=== PATIENT | female | born 2000 | race Caucasian/White ===

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

== ENCOUNTER 2024-04-18 08:15 | Emergency (ER) | payer OTHER ==
[~2024-04-18] VITALS: Ht 165.1 cm; Wt 76.0 kg
[2024-04-18 09:07] LABS: BASOPHILS % (AUTO) 0.6 % (0.0-2.0); EOSINOPHILS % (AUTO) 0.6 % (1.0-6.0); HEMATOCRIT 43.6 % (36-46); HEMOGLOBIN 14.2 g/dL (12.0-16.0); LYMPHOCYTES # (AUTO) 2.2 K/uL (1.0-4.8); LYMPHOCYTES % (AUTO) 37.7 % (22.0-44.0); MEAN CORPUSCULAR HEMOGLOBIN 29.1 pg (26.0-34.0); MEAN CORPUSCULAR HGB CONC 32.5 G/dL (31.0-37.0); MEAN CORPUSCULAR VOLUME 90 fL (80-100); MONOCYTES # (AUTO) 0.6 K/uL (0.1-1.0); MONOCYTES % (AUTO) 9.5 % (2.0-9.0); NEUTROPHILS % (AUTO) 51.6 % (40.0-70.0); PLATELET COUNT (AUTO) 296 K/uL (150-450); RED BLOOD CELL COUNT(AUTO) 4.86 MIL/uL (4.00-5.20); RED CELL DISTRIBUTION WIDTH 13.2 % (11.5-14.5); WHITE BLOOD COUNT (AUTO) 5.9 K/uL (4.5-11.0)
[2024-04-18] MEDS: ONDANSETRON HCL 4 MG/2 ML VIAL IVP ONE ×2 (09:29→10:13)
[2024-04-18] MEDS: SODIUM CHLORIDE 0.9% 1,000 ML IV ONE ×2 (09:29→10:12)
[2024-04-18 09:54] LABS: ALANINE AMINOTRANSFERASE 14 U/L (12-78); ALBUMIN 4.1 g/dL (3.4-5.0); ALKALINE PHOSPHATASE 74 U/L (46-116); ANION GAP 14 mmol/L (8-16); ASPARTATE AMINOTRANSFERASE 17 U/L (15-37); BILIRUBIN,TOTAL 0.9 mg/dL (0.1-1.0); CALCIUM, TOTAL 9.3 mg/dL (8.8-10.5); CARBON DIOXIDE 27 mmol/L (22-29); CHLORIDE 99 mmol/L (98-107); CREATININE 0.81 mg/dL (0.60-1.30); GLOMERULAR FILTR. RATE CALC > 60 mL/min (>60); GLUCOSE,RANDOM 107 mg/dL (70-110); HCG,QUANTITATIVE < 1 mIU/mL (0-6); LIPASE 17 U/L (16-77); SODIUM SERUM 140 mmol/L (136-145); TOTAL PROTEIN, SERUM 7.9 g/dL (6.4-8.2); UREA NITROGEN, BLOOD 12 mg/dL (7-18)
[2024-04-18 10:00] LABS: POTASSIUM 2.9 mmol/L (3.5-5.1)
[2024-04-18] MEDS: POTASSIUM CHL 10 MEQ/WATER 50 ML IV SCH (10:13)
[2024-04-18] MEDS ORDERED: PB/HYOSCY/ATR/SCOP/LIDO/MAALOX 55 ML BOTTLE PO ONE (12:30)
[2024-04-18 12:40] LABS: APPEARANCE,URINE CLEAR (CLEAR); BILIRUBIN,URINE NEGATIVE (NEGATIVE); COLOR,URINE YELLOW (YELLOW); GLUCOSE, URINE (UA) NEGATIVE (NEGATIVE); KETONES,URINE =>150 mg/dL (NEGATIVE); LEUKOCYTE ESTERASE ,URINE TRACE (NEGATIVE); NITRATE,URINE NEGATIVE (NEGATIVE); OCCULT BLOOD,URINE NEGATIVE (NEGATIVE); PH,URINE 7.5 (5.0-8.0); PROTEIN,URINE 30-70 mg/dL (NEGATIVE); SPECIFIC GRAVITIY, URINE 1.036 (1.003-1.030); UROBILINOGEN,URINE <=1.0 mg/dL (<=1.0)
[2024-04-18] MEDS: DiphenhydrAMINE HCL 50 MG/ML VIAL IVP ONE (12:49)
[2024-04-18] MEDS: HALOPERIDOL LACTATE 5 MG/ML VIAL IVP ONE (12:49)
[2024-04-18 13:07] LABS: RBC,URINE 0-2 /HPF (0-2)
[2024-04-18 13:08] LABS: BACTERIA,URINE Many /HPF (None Seen); SQUAMOUS EPITHELIAL CELL,UR Many /LPF (None Seen)
[2024-04-18] MEDS: CefTRIAXone 1 GM/DEXTROSE 50 ML IV ONE (13:49)
[2024-04-18 14:45] VITALS: BP 120/70; PULSE 60; RESP 16; TEMP 98.3; O2SAT 98
[2024-04-18] MEDS ORDERED: ONDA-104 PO (14:47)
[2024-04-18] MEDS ORDERED: CEPH-558 PO (14:47)
== END 2024-04-18 15:28 | disposition home or self-care (01) ==
LOC: EMS 08:15
DX: N39.0 Urinary tract infection, site not specified (principal); R11.2 Nausea with vomiting, unspecified; F12.90 Cannabis use, unspecified, uncomplicated
CPT/HCPCS: 99284; 96365; 96375; 96361; 96367; 80053; 81001; 83690; 83735; 84702; 85025; 87077; 87086; 36415; 96376; J0696; J1200; J1630; J2405; J3480; J7030

== ENCOUNTER 2025-04-02 09:08 | Emergency (ER) | payer OTHER ==
[~2025-04-02] VITALS: Ht 157.5 cm; Wt 59.1 kg
[~2025-04-02 09:08] MED LIST: CEPH-558 PO; ONDA-104 PO
[2025-04-02 09:20] VITALS: TEMP 97.9
[2025-04-02 10:00] VITALS: BP 110/74
[2025-04-02 10:05] VITALS: PULSE 73; RESP 18; O2SAT 100
[2025-04-02] MEDS: KETOROLAC TROMETHAMINE 30 MG/ML VIAL IM ONE (10:09)
[2025-04-02] MEDS: LIDOCAINE 5% TRANSDERMAL PATCH TD ONE (10:09)
[2025-04-02] MEDS: ACETAMINOPHEN 325 MG TABLET PO ONE (10:09)
[2025-04-02] MEDS ORDERED: IBUP-1492 PO (11:22)
[2025-04-02] MEDS ORDERED: ACET-2247 PO (11:22)
[2025-04-02] MEDS ORDERED: LIDO-57 TP (11:22)
== END 2025-04-02 11:37 | disposition home or self-care (01) ==
LOC: EMS 09:09
DX: S20.211A Contusion of right front wall of thorax, initial encounter (principal); F12.90 Cannabis use, unspecified, uncomplicated; Z79.899 Other long term (current) drug therapy; V49.40XA Driver injured in collision with unspecified motor vehicles in traffic accident, initial encounter; Y93.89 Activity, other specified; Y92.410 Unspecified street and highway as the place of occurrence of the external cause; Y99.8 Other external cause status
CPT/HCPCS: 99283; 71101; 96372; G0238; J1885